=== PATIENT | female | born 1970 | race Caucasian/White ===

== ENCOUNTER 2017-08-07 11:43 | Outpatient (RCR) | payer BC, SELFPAY | END 2017-08-26 23:59 | LOC: NS 11:43 | PROVIDERS: Family Provider Family Medicine; PCP Family Medicine; Visit Provider Family Medicine | DX: Z68.28 Body mass index [BMI] 28.0-28.9, adult (principal); Z71.3 Dietary counseling and surveillance | CPT/HCPCS: 97803 ==

== ENCOUNTER → 2017-08-20 12:46 | Outpatient (CLI) | payer BC, SELFPAY ==
--- NOTE | 2017-08-20 12:49 | HPBI_ITS ---
MAMMOGRAPHY - BILATERAL DIAGNOSTIC REASON FOR EXAM: Female, 46 years old. Prior bilateral mastectomies with TRAM flap reconstruction. PERTINENT HISTORY: Personal history of breast cancer. Grandmother with breast cancer. TECHNIQUE: Digital bilateral breast kendra (3D mammographic acquisition) in the CC and MLO projections. 2-D mediolateral oblique (MLO) and craniocaudad (CC) views of both breasts were obtained. CAD: Full Field Digital Mammography with Computer Added Detection was performed. COMPARISON: Comparison is made with prior outside examination dated March 07, 2016 and prior in-house mammogram dated January 09, 2014. FINDINGS: Breast Composition: The breasts are almost entirely fatty. Multiple surgical clips are once again seen in the axillary regions and deep aspects of both breasts. There has been no change. There are no dominant masses or suspicious calcifications. No other significant abnormalities are identified. There has been no significant change since the prior study. HPBI/DIAG MAMM W/CAD, BILAT IMPRESSION: Stable bilateral diagnostic mammogram. One year follow-up recommended. (A) ASSESSMENT CATEGORY: BIRADS Category 2: Benign. A letter regarding these results will be sent to the patient by the facility within 30 days. Approximately 10% of breast cancers are not detected by mammography. A normal mammogram should not delay biopsy of a clinically suspicious abnormality. Electronically Signed: Sebastien Balderas MD at 14:23 EST Tel [phone], Service support ,
--- NOTE | 2017-08-20 13:35 | US_ITS ---
STUDY: ULTRASOUND BREAST - RIGHT REASON FOR EXAM: Female, 46 years old. Palpable lump in the right breast. Right breast tenderness. TECHNIQUE: Axial and longitudinal images of the RIGHT breast were performed with a high resolution ultrasound transducer. COMPARISON: Comparison is made with prior mammogram done earlier in the day. FINDINGS: RIGHT Breast: 2 small cysts are seen at the 7:00 position the breast at 5 cm from nipple. The larger measures 6 mm x 6 x 5 mm. US/Breast Limited Unilateral IMPRESSION: 2 subcentimeters cysts seen at the 7:00 position of breast at 5 cm from the nipple. ASSESSMENT CATEGORY: BIRADS Category 2: Benign. A letter regarding these results will be sent to the patient by the facility within 30 days. Electronically Signed: Sebastien Balderas MD at 14:33 EST Tel [phone], Service support ,
== END ==
PROVIDERS: Family Provider Family Medicine; PCP Family Medicine; Visit Provider Family Medicine
DX: C50.911 Malignant neoplasm of unspecified site of right female breast (principal)
CPT/HCPCS: 76642; 77062; 77066; G0279

== ENCOUNTER 2017-09-04 11:07 | Outpatient (RCR) | payer BC, SELFPAY | END 2017-09-04 11:08 | disposition home or self-care (01) | LOC: NS 11:07 | PROVIDERS: Family Provider Family Medicine; PCP Family Medicine; Visit Provider Family Medicine | DX: Z68.28 Body mass index [BMI] 28.0-28.9, adult (principal); Z71.3 Dietary counseling and surveillance | CPT/HCPCS: 97803 ==

== ENCOUNTER 2017-09-18 11:36 | Outpatient (RCR) | payer BC, SELFPAY | END 2017-09-26 23:59 | LOC: NS 11:36 | PROVIDERS: Family Provider Family Medicine; PCP Family Medicine; Visit Provider Family Medicine | DX: Z71.3 Dietary counseling and surveillance (principal); Z68.28 Body mass index [BMI] 28.0-28.9, adult | CPT/HCPCS: 97803 ==

== ENCOUNTER 2017-10-02 09:44 | Outpatient (RCR) | payer BC, SELFPAY | END 2017-10-02 09:45 | LOC: NS 09:44 | PROVIDERS: Family Provider Family Medicine; PCP Family Medicine; Visit Provider Family Medicine | DX: Z68.28 Body mass index [BMI] 28.0-28.9, adult (principal); Z71.3 Dietary counseling and surveillance | CPT/HCPCS: 97803 ==

== ENCOUNTER → 2018-05-17 12:22 | Outpatient (CLI) | payer BC, SELFPAY ==
--- NOTE | 2018-05-17 12:31 | RAD_ITS ---
STUDY: X-RAY - ABDOMEN/PELVIS REASON FOR EXAM: Female, 47 years old. Left-sided pain with diarrhea TECHNIQUE: AP supine and upright views of the abdomen and pelvis. COMPARISON: None. FINDINGS: Normal visualized lung bases. Constipation pattern is present. Nonobstructive bowel gas pattern. There is no demonstrated free abdominal air. The visualized liver, spleen and kidneys are grossly normal in size and morphology. Normal soft tissue structures. Normal visualized osseous structures. Scattered surgical clips in the chest and abdomen. Fallopian tube clip. Pelvic phleboliths. RAD/Abd Inc Decub and/or Erect IMPRESSION: Constipation pattern is present. Nonobstructive bowel gas pattern. Electronically Signed: Emiliano Ndiaye MD at 8:23 EST Tel , Service support ,
[2018-05-17 14:46] LABS: Erythrocyte Sedimentation Rate 16 mm/hr (0-20)
[2018-05-17 14:47] LABS: Absolute Lymphocyte Count 2.73 X10^3/ul (0.83-4.51); Basophil# 0.03 X10^3/uL; Basophil% 0.2 % (0-1); Eosinophil# 0.06 X10^3/uL; Eosinophils% 0.4 % (0-5); Hematocrit 41.7 % (37-47); Hemoglobin 13.6 g/dl (12.0-15.0); Lymphocyte # 2.73 X10^3/ul (4.0); Lymphocyte % 19.7 % (19-41); Mean Corp Hgb Conc 32.6 g/gl (32-36); Mean Corpuscular Hgb 28.9 pg (27.0-32.0); Mean Corpuscular Volume 88.5 fL (81-99); Mean Platelet Vol. 9.9 fl (6.2-12.0); Monocyte# 0.98 X10^3/uL; Monocyte% 7.1 % (0-10); Neutrophil # 10.02 X10^3/uL (2.7-7.7); Neutrophil % 72.3 % (47-70); Platelet Count 325 K/mm3 (150-450); RBC Distribution Width CV 13.1 % (11.6-14.6); RBC Distribution Width SD 41.9 fl (35.1-43.9); Red Blood Count 4.71 M/mm3 (4.2-5.4); White Blood Count 13.9 K/mm3 (4.4-11.0)
[2018-05-17 14:48] LABS: POSITIVE COUNT NO; POSITIVE DIFFERENTIAL NO; POSITIVE MORPHOLOGY NO
[2018-05-17 15:09] LABS: ALB/GLOB Ratio 1.2 RATIO (0.9-2.4); AST(SGOT) 18 U/L (15-37); Alanine Aminotransfer ALT/SGPT 38 U/L (13-56); Alkaline Phosphatase 111 U/L (45-117); Anion Gap 7 (5-15); BUN 16 mg/dL (7-18); Calcium,Total 8.5 mg/dL (8.5-10.1); Chloride 104 mmol/L (98-107); EST Glomerular Filtration Rate 63 mL/min (>60); Est Glom Filt Rate - Afr Amer 76 mL/min (>60); Globulin 3.4 g/dL (2.2-4.2); Glucose 109 mg/dL (74-106); Potassium 3.6 mmol/L (3.5-5.1); Protein, Total 7.4 g/dL (6.4-8.2); Sodium Level 139 mmol/L (136-145)
== END ==
PROVIDERS: Family Provider Family Medicine; PCP Family Medicine; Referring Provider Family Medicine; Visit Provider Family Medicine
DX: K59.00 Constipation, unspecified (principal)
CPT/HCPCS: 36415; 74019; 80053; 85025; 85652; 86140; 87086; 87088

== ENCOUNTER → 2018-05-18 10:13 | Outpatient (CLI) | payer BC, SELFPAY ==
--- NOTE | 2018-05-18 10:37 | CT_ITS ---
STUDY: CT ABDOMEN AND PELVIS WITH CONTRAST REASON FOR EXAM: Female, 47 years old. Left lower quadrant pain. Low back pain. History of bilateral mastectomy and chemotherapy for breast cancer. RADIATION DOSAGE (If Supplied By Facility): CTDIvol = ( 15.21 ) mGy, DLP = ( 819.36 ) mGycm TECHNIQUE: Transaxial images were obtained from the dome of the diaphragm to the symphysis pubis with oral contrast. 100 ml of Isovue 300 contrast was administered. Sagittal and coronal images were reconstructed. Individualized dose optimization techniques were used for this CT. COMPARISON: None. FINDINGS: The visualized lung bases are unremarkable. The visualized portions of the heart are within normal limits. Normal liver. Normal gallbladder and extrahepatic biliary system. Normal spleen. Normal pancreas. Normal bilateral adrenal glands. Normal right kidney. Normal left kidney. There is a small hiatal hernia. Normal small intestine. There is evidence of circumferential wall thickening of the distal portion of the descending colon and proximal portion of the sigmoid colon with increased markings in the surrounding peritoneal fat. This is suggestive of a diverticulitis. A small thickened diverticulum is seen along the mesenteric side of the proximal sigmoid colon at the site of inflammation. There are multiple colonic diverticula consistent with diverticulosis. The patient is status post appendectomy. Normal abdominal aorta. Normal inferior vena cava. Normal retroperitoneum. Normal urinary bladder. There is absence of the uterus consistent with a prior hysterectomy. Small amount of free fluid is seen in the cul-de-sac. Normal abdominal wall. Disc space narrowing and disc degeneration is seen at the L5-S1 level. CT/Abdomen/Pelvis WITH Contrast IMPRESSION: Findings in keeping with the diverticulitis of the distal descending colon and proximal sigmoid colon with thickening of the wall and increased markings in the surrounding peritoneal fat. No abscess collection is seen at this time. Small amount of free fluid is seen in the cul-de-sac. Electronically Signed: Sebastien Balderas MD at 13:21 EST Tel [phone], Service support ,
== END ==
PROVIDERS: Family Provider Family Medicine; PCP Family Medicine; Referring Provider Family Medicine; Visit Provider Family Medicine
DX: R10.9 Unspecified abdominal pain (principal)
CPT/HCPCS: 74177; Q9967

== ENCOUNTER → 2018-10-19 11:07 | Outpatient (CLI) | payer BC, SELFPAY ==
[2018-10-19 12:34] LABS: Absolute Lymphocyte Count 2.83 X10^3/ul (0.83-4.51); Absolute Neutrophil Count 3.1 X10^3/uL (2.0-7.7); Basophil# 0.04 X10^3/uL; Basophil% 0.6 % (0-1); Eosinophil# 0.15 X10^3/uL; Eosinophils% 2.3 % (0-5); Hematocrit 43.6 % (37-47); Hemoglobin 14.3 g/dl (12.0-15.0); Lymphocyte # 2.83 X10^3/ul (4.0); Lymphocyte % 43.7 % (19-41); Mean Corp Hgb Conc 32.8 g/gl (32-36); Mean Corpuscular Hgb 28.7 pg (27.0-32.0); Mean Corpuscular Volume 87.4 fL (81-99); Mean Platelet Vol. 9.3 fl (6.2-12.0); Monocyte# 0.38 X10^3/uL; Monocyte% 5.9 % (0-10); Neutrophil # 3.06 X10^3/uL (2.7-7.7); Neutrophil % 47.3 % (47-70); Platelet Count 309 K/mm3 (150-450); RBC Distribution Width CV 13.3 % (11.6-14.6); RBC Distribution Width SD 42.1 fl (35.1-43.9); Red Blood Count 4.99 M/mm3 (4.2-5.4); White Blood Count 6.5 K/mm3 (4.4-11.0)
[2018-10-19 12:44] LABS: POSITIVE COUNT NO; POSITIVE DIFFERENTIAL NO; POSITIVE MORPHOLOGY NO
[2018-10-19 13:02] LABS: Anion Gap 3 (5-15); BUN 15 mg/dL (7-18); BUN/Creat Ratio 17.8 RATIO (10-20); Calcium,Total 8.9 mg/dL (8.5-10.1); Chloride 107 mmol/L (98-107); Creatinine, Serum 0.84 mg/dL (0.55-1.02); EST Glomerular Filtration Rate 76 mL/min (>60); Est Glom Filt Rate - Afr Amer 92 mL/min (>60); Glucose 97 mg/dL (74-106); Potassium 4.2 mmol/L (3.5-5.1); Sodium Level 139 mmol/L (136-145); Thyroid Stim Hormone (TSH) 1.09 uIU/mL (0.358-3.74)
[2018-10-19 13:04] LABS: Vitamin B12 543 pg/mL (211-911); Vitamin D,25 Hydroxy 15.4 ng/mL (29.95-100.01)
== END ==
PROVIDERS: Family Provider Family Medicine; PCP Family Medicine; Referring Provider Family Medicine; Visit Provider Family Medicine
DX: E04.1 Nontoxic single thyroid nodule (principal); E55.9 Vitamin D deficiency, unspecified; D53.1 Other megaloblastic anemias, not elsewhere classified; F98.8 Other specified behavioral and emotional disorders with onset usually occurring in childhood and adolescence; R53.83 Other fatigue
CPT/HCPCS: 36415; 80048; 82306; 82607; 84443; 85025

== ENCOUNTER → 2018-11-12 12:02 | Outpatient (CLI) | payer BC, SELFPAY ==
--- NOTE | 2018-11-12 12:05 | BI_ITS ---
MAMMOGRAPHY - BILATERAL SCREENING REASON FOR EXAM: Female, 47 years old. Routine annual screening examination. PERTINENT HISTORY: Personal history of breast cancer. Bilateral mastectomies with TRAM flap reconstructive surgery. Grandmother with breast cancer. TECHNIQUE: Digital bilateral breast kendra (3D mammographic acquisition) in the CC and MLO projections. 2-D mediolateral oblique (MLO) and craniocaudad (CC) views of both breasts were obtained. CAD: Full Field Digital Mammography with Computer Added Detection was performed. COMPARISON: Comparison is made with prior study dated August 20, 2017 and March 15, 2015. FINDINGS: Breast Composition: The breasts are almost entirely fatty. There are no dominant masses or suspicious calcifications. Multiple surgical clips are once again seen in the axillary regions of both breasts as well as in the deep aspects of both breasts. Stable small bilateral benign appearing axillary lymph nodes. No other significant abnormalities are identified. There has been no significant change since the prior study. BI/SCREENING MAMM (CAD), BILAT IMPRESSION: Stable bilateral screening mammogram. Yearly follow-up mammogram recommended. (A) ASSESSMENT CATEGORY: BIRADS Category 2: Benign. A letter regarding these results will be sent to the patient by the facility within 30 days. Approximately 10% of breast cancers are not detected by mammography. A normal mammogram should not delay biopsy of a clinically suspicious abnormality. [id number] Electronically Signed: Sebastien Balderas, at 13:38 EDT , Service support ,
== END ==
PROVIDERS: Family Provider Family Medicine; PCP Family Medicine; Referring Provider Family Medicine; Visit Provider Family Medicine
DX: Z12.31 Encounter for screening mammogram for malignant neoplasm of breast (principal); Z80.3 Family history of malignant neoplasm of breast
CPT/HCPCS: 77063; 77067

== ENCOUNTER → 2020-01-03 09:55 | Outpatient (CLI) | payer BC, SELFPAY ==
[2020-01-03 12:44] LABS: Hemoglobin 13.8 g/dL (12.0-15.0); Mean Corp Hgb Conc 32.1 g/dL (32-36); Mean Corpuscular Hgb 29.2 pg (27.0-32.0); Mean Corpuscular Volume 90.9 fL (81-99); Mean Platelet Vol. 9.4 fl (6.2-12.0); Platelet Count 302 K/mm3 (150-450); RBC Distribution Width CV 12.7 % (11.6-14.6); Red Blood Count 4.73 M/mm3 (4.2-5.4)
[2020-01-03 12:47] LABS: Amphetamine Urine VISTA POSITIVE (<1000 ng/mL); Barbiturate Urine VISTA NEGATIVE (< 200 ng/mL); Benzodiazepine Urine VISTA NEGATIVE (< 200 ng/mL); Cocaine Urine VISTA NEGATIVE (< 300 ng/mL); Ecstacy Urine VISTA NEGATIVE (< 500 ng/mL); Methadone Urine VISTA NEGATIVE (< 300 ng/mL); PCP Urine VISTA NEGATIVE (< 25 ng/mL); THC Urine VISTA NEGATIVE (< 50 ng/mL); Vista UDS pH Range 6
[2020-01-03 13:01] LABS: Vitamin D,25 Hydroxy 46.4 ng/mL
[2020-01-03 13:19] LABS: ALB/GLOB Ratio 1.1 RATIO (0.9-2.4); AST(SGOT) 24 U/L (15-37); Alanine Aminotransfer ALT/SGPT 47 U/L (13-56); Albumin, Serum 3.8 g/dL (3.2-5.0); Alkaline Phosphatase 96 U/L (45-117); Anion Gap 7 (5-15); BUN 17 mg/dL (7-18); BUN/Creat Ratio 17.8 RATIO (10-20); Calcium,Total 8.6 mg/dL (8.5-10.1); Chloride 103 mmol/L (98-107); Cholesterol 191 mg/dL (200); Creatinine, Serum 0.96 mg/dL (0.55-1.02); EST Glomerular Filtration Rate 65 mL/min (>60); Est Glom Filt Rate - Afr Amer 79 mL/min (>60); Globulin 3.6 g/dL (2.2-4.2); Glucose 104 mg/dL (74-106); High Density Lipoprotein 60 mg/dL; Potassium 4.3 mmol/L (3.5-5.1); Protein, Total 7.4 g/dL (6.4-8.2); Sodium Level 138 mmol/L (136-145); Thyroid Stim Hormone (TSH) 1.09 uIU/mL (0.358-3.74); Triglycerides 93 mg/dL; Very Low Density Lipoprotein 19 mg/dL (5-40)
== END ==
LOC: MFPLAB 10:00
PROVIDERS: PCP Family Medicine; Referring Provider Family Medicine; Visit Provider Family Medicine
DX: Z00.00 Encounter for general adult medical examination without abnormal findings (principal); Z13.220 Encounter for screening for lipoid disorders; M85.80 Other specified disorders of bone density and structure, unspecified site; K21.0 Gastro-esophageal reflux disease with esophagitis
CPT/HCPCS: 36415; 80053; 80061; 80307; 82306; 84443; 85027

== ENCOUNTER 2020-12-18 17:20 | Emergency (ER) | payer BC, SELFPAY ==
[2020-12-18 17:21] VITALS: BP 132/87; PULSE 115; RESP 18; TEMP 36.1; O2SAT 98; BMI 29.4
[2020-12-18 17:22] VITALS: BP 132/87; PULSE 115; RESP 18; TEMP 36.1; O2SAT 98
--- NOTE | 2020-12-18 17:57 | CT_ITS ---
HISTORY: lower abd pain, more LLQ EXAMINATION: CT Abdomen And Pelvis W/ Contrast Injection TECHNIQUE: Helically acquired images were obtained of the abdomen and pelvis following IV contrast. A radiation dose optimization technique was used for this scan. IV Contrast dosage and agent: IV 100mL Isovue-300 Oral contrast: None. COMPARISON: 05/18/18 FINDINGS: LOWER CHEST: Bibasilar dependent changes. No cardiomegaly or pericardial effusion. Small hiatal hernia. LIVER: Homogeneous. No focal mass. GALLBLADDER AND BILIARY TREE: No calcified gallstones. No gallbladder distension or wall edema. No intra- or extrahepatic biliary ductal dilation. PANCREAS: No focal cystic or solid mass. SPLEEN: Normal size without focal cystic or solid mass. ADRENAL GLANDS: No nodules. KIDNEYS AND URETERS: Normal renal size and position. No hydronephrosis. PERITONEUM: No ascites or free air. BOWEL: Prior appendectomy changes. No stomach or bowel distension. Colonic diverticulosis with segment of sigmoid wall thickening and pericolonic stranding. LYMPH NODES: No enlarged mesenteric or retroperitoneal lymph nodes. VESSELS: Aorta is non-dilated. URINARY BLADDER: Unremarkable. REPRODUCTIVE ORGANS: No pelvic masses. Uterus absent. ABDOMINAL WALL: No discrete abdominal or pelvic wall hernia. BONES: No acute or aggressive abnormality. CT/Abdomen/Pelvis W IV Cont ONLY IMPRESSION: Acute sigmoid diverticulitis. No pelvic abscess or evidence of perforation. Individualized dose optimization techniques were used for this CT. at 1922 Reported and signed by: Heriberto Vital MD Electronically Signed: Heriberto Vital MD at 19:21 EDT Tel , Service support ,
--- NOTE | 2020-12-18 18:01 | ED.VIS.GI ---
HPI HPI - GI History of Present Illness Chief Complaint: Abd Pain Informant: patient Abdominal Pain/Flank Pain Onset: Days (5) Context: Gradual Onset Timing: Continuous and Waxes and wanes Quality: Aching Location: LLQ Current Severity: Moderate Maximum Severity: Severe Worsened by: Nothing Relieved by: Nothing Nausea/Vomiting/Emesis GI Symptom: Positive for Nausea; Negative for Vomiting Diarrhea/Melena/Hematochezia GI Symptom: Negative for Diarrhea, Melena and Hematochezia Associated Symptoms Associated Symptoms: Positive for Dysuria and Frequency; Negative for Hematuria and Urgency Narrative Narrative: Abdominal pain mostly left lower quadrant waxing and waning, has been worsening with occasional spasms. Seen by her PCP and referred to the ER. States she was diagnosed with diverticulosis but does not know that she ever had diverticulitis. She denies any known fevers. Pain does radiate into her back some. Recent Illness/Hospitalization: No [facility] Medical History Breast cancer GERD (gastroesophageal reflux disease) Home Medications anastrozole 1 mg PO DAILY 12/18/20 [History Last Taken Unknown] bupropion HCl 150 mg PO DAILY 12/18/20 [History Last Taken Unknown] cholecalciferol (vitamin D3) 50 mcg PO DAILY 12/18/20 [History Last Taken Unknown] ciprofloxacin HCl 500 mg PO BID #20 tablet 12/18/20 [Rx Last Taken Unknown] dextroamphetamine-amphetamine [Adderall XR] 30 mg PO DAILY 12/18/20 [History Last Taken Unknown] metronidazole 500 mg PO BID #20 tab 12/18/20 [Rx Last Taken Unknown] omeprazole 40 mg PO DAILY 12/18/20 [History Last Taken Unknown] ondansetron 8 mg PO Q8H PRN PRN #20 tab 12/18/20 [Rx Last Taken Unknown] tramadol 50 mg PO Q4H PRN PRN 3 Days #14 tab 12/18/20 [Rx Last Taken Unknown] Allergy/AdvReac Type Severity Reaction Status Date / Time No Known Allergies Allergy Verified 12/18/20 17:46 Social History Smoking Status: Former smoker ROS ROS ED Constitutional Constitutional ED: Denies chills or fever(s) Eyes Eyes: Denies change in vision or diplopia ENT ENT ED: Denies rhinorrhea or sore throat Cardiovascular Cardiovascular: Denies chest pain or palpitations Respiratory/Chest Respiratory/Chest: Denies cough or dyspnea Gastrointestinal Gastrointestinal: Reports abdominal pain and nausea; Denies diarrhea or vomiting Genitourinary Genitourinary ED: Reports as per HPI and dysuria; Denies hematuria Musculoskeletal Musculoskeletal: Reports back pain; Denies neck pain Integumentary Denies abscess or rash Neurologic Neurologic: Denies headache(s), paresthesias or weakness Psychiatric Psychiatric: Denies anxiety or suicidal thoughts EXAM Physical Exam Const Vital Signs: 12/18/20 17:21 12/18/20 17:22 12/18/20 19:18 Temperature 96.9 F L 96.9 F L Temperature Source Temporal Temporal Pulse Rate 115 H 115 H 101 H Respiratory Rate 18 18 16 Blood Pressure 132/87 H 132/87 H 123/79 H Blood Pressure Mean 102 102 93 Pulse Ox 98 98 99 Oxygen Delivery Method Room Air Room Air Room Air Positive well nourished and well developed General Appearance ED: well developed and NAD HEENT Reports moist mucous membranes normocephalic and atraumatic Eyes PERRL and EOMs intact bilaterally Neck full ROM and supple Resp normal respiratory effort and clear to auscultation bilaterally Cardio regular rate, regular rhythm and no murmurs GI non-distended GI Narrative: Tender in both lower quadrants, mildly suprapubic. No guarding or rebound. Otherwise nontender. Auscultation: normoactive bowel sounds Palpation: soft Back/Spine no CVA tenderness General Back: other FROM Extremity normal to inspection General Extremety ED: Negative for edema, pulses abnormal or tenderness General Extremity: Negative for edema or pulses abnormal Neuro oriented x3, CN's II-XII intact bilaterally and no sensory deficits noted Sensorium / Orientation: awake and alert Motor Exam: strength 5/5 throughout Skin no rashes or lesions noted and no wounds MDM MDM MDM Narrative Medical decision making narrative: Patient's work-up is consistent with diverticulitis in addition to a bladder infection given her symptoms and urinalysis. She is well-appearing, felt a little better after Toradol, and after we discussed other options for pain, she was okay getting a tramadol. I think she can be treated as an outpatient. I offered admission she declines and is comfortable with that as well and we discussed reasons to return. I sent her urine for a culture, gave her initial IV doses of ciprofloxacin and metronidazole, and will send her home on same for a 10-day course. Lab Data Attestation: I reviewed the patient's lab results. Labs: Laboratory Results - last 24 hr 12/18/20 12/18/20 12/18/20 18:05 18:05 18:05 WBC 11.3 H RBC 4.82 Hgb 13.9 Hct 42.7 MCV 88.6 MCH 28.8 MCHC 32.6 RDW Std Deviation 40.7 RDW Coeff of Layla 12.7 Plt Count 360 MPV 8.9 Immature Gran % (Auto) 0.400 Neut % (Auto) 70.5 H Lymph % (Auto) 21.2 [place] % (Auto) 7.3 Eos % (Auto) 0.2 Baso % (Auto) 0.4 Absolute Neuts (auto) 8.0 H Absolute Lymphs (auto) 2.39 Nucleated RBC % 0 Sodium 140 Potassium 3.7 Chloride 104 Carbon Dioxide 27.0 Anion Gap 9 BUN 14 Creatinine 1.19 H Estim Creat Clear Calc 41.73 Est GFR (MDRD) Af Amer 61 Est GFR (MDRD) Non-Af 51 L BUN/Creatinine Ratio 11.8 Glucose 120 H Calcium 8.8 Urine Color Yellow Urine Clarity Clear Urine pH 6.5 Ur Specific [place] 1.015 Urine Protein 15 H Urine Glucose (UA) Normal Urine Ketones 5 H Urine Occult Blood 50 H Urine Nitrite Negative Urine Bilirubin Negative Urine Urobilinogen 8 H Ur Leukocyte Esterase 100 H Urine RBC 0-5 SEEN Urine WBC 10-25 SEEN Ur Squamous Epith Cells 0 SEEN Urine Bacteria RARE Urine Mucus 1+ Radiography Diagnostic Testing: Radiology Impression Abdomen/Pelvis CT 12/18/20 17:57 IMPRESSION: Acute sigmoid diverticulitis. No pelvic abscess or evidence of perforation. Individualized dose optimization techniques were used for this CT. at 1922 Reported and signed by: Heriberto Vital MD Electronically Signed: Heriberto Vital MD at 19:21 EDT Tel , Service support , Discharge Plan Triage Chief Complaint: Abd Pain ED Provider: Anant Ro Dx/Rx/DC Orders Clinical Impression: Sigmoid diverticulitis, Acute lower UTI Instructions: ED Diverticulitis, ED CYSTITIS Female Adult Prescriptions: New metronidazole [metronidazole] 500 MG tablet 500 mg PO BID Qty: 20 RF: 0 ciprofloxacin HCl [ciprofloxacin HCl] 500 MG tablet 500 mg PO BID Qty: 20 RF: 0 tramadol 50 MG tablet 50 mg PO Q4H PRN PRN (Reason: Pain) 3 Days Qty: 14 RF: 0 ondansetron [ondansetron] 4 MG tablet 8 mg PO Q8H PRN PRN (Reason: Nausea) Qty: 20 RF: 0 No Action anastrozole 1 mg tablet 1 mg PO DAILY RF: 0 omeprazole 40 mg capsule,delayed release(DR/EC) 40 mg PO DAILY RF: 0 dextroamphetamine-amphetamine [Adderall XR] 30 mg capsule,extended release 24hr 30 mg PO DAILY RF: 0 bupropion HCl 150 mg tablet extended release 24 hr 150 mg PO DAILY RF: 0 cholecalciferol (vitamin D3) 50 mcg (2,000 unit) capsule 50 mcg PO DAILY RF: 0 Primary Care Provider: Kishor Acosta Referrals: Kishor Acosta MD [Primary Care Provider] - Disposition Disposition: Home, Self Care
[2020-12-18] MEDS: Ondansetron 4 MG/2 ML Vial IV ×2 (18:10→22:14)
[2020-12-18] MEDS: 0.9% Normal Saline 1,000 ML 1000 ML IV (18:10)
[2020-12-18] MEDS: Ketorolac 15 MG/ML Vial IV (18:10)
[2020-12-18 18:12] LABS: Squamous Epithelial Cells - UA 0 SEEN /hpf (5-10)
[2020-12-18 18:15] LABS: Absolute Lymphocyte Count 2.39 X10^3/uL (0.83-4.51); Basophil# 0.04 X10^3/uL; Basophil% 0.4 % (0-1); Eosinophil# 0.02 X10^3/uL; Eosinophils% 0.2 % (0-5); Hematocrit 42.7 % (37-47); Hemoglobin 13.9 g/dL (12.0-15.0); Lymphocyte # 2.39 X10^3/ul (0.83-4.51); Lymphocyte % 21.2 % (19-41); Mean Corp Hgb Conc 32.6 g/dL (32-36); Mean Corpuscular Hgb 28.8 pg (27.0-32.0); Mean Corpuscular Volume 88.6 fL (81-99); Mean Platelet Vol. 8.9 fl (6.2-12.0); Monocyte# 0.82 X10^3/uL; Monocyte% 7.3 % (0-10); NRBC Flagged by Analyzer 0 % (0-5); Neutrophil # 7.96 X10^3/uL (2.7-7.7); Neutrophil % 70.5 % (47-70); Platelet Count 360 K/mm3 (150-450); RBC Distribution Width CV 12.7 % (11.6-14.6); RBC Distribution Width SD 40.7 fl (35.1-43.9); Red Blood Count 4.82 M/mm3 (4.2-5.4); White Blood Count 11.3 K/mm3 (4.4-11.0)
[2020-12-18 18:35] LABS: Anion Gap 9 (5-15); BUN 14 mg/dL (7-18); BUN/Creat Ratio 11.8 RATIO (10-20); Calcium,Total 8.8 mg/dL (8.5-10.1); Chloride 104 mmol/L (98-107); Creatinine, Serum 1.19 mg/dL (0.55-1.02); EST Glomerular Filtration Rate 51 mL/min (>60); Est Glom Filt Rate - Afr Amer 61 mL/min (>60); Estimated Creatinine Clearance 41.73 ml/min; Glucose 120 mg/dL (74-106); Potassium 3.7 mmol/L (3.5-5.1); Sodium Level 140 mmol/L (136-145)
[2020-12-18 18:36] LABS: Color, Urine Yellow (Yellow); Glucose, Dipstick Normal (Normal); Ketone-Dipstick 5 mg/dl (Negative); Leukocyte Esterase-Dipstick 100 /ul (Negative); Nitrite-Dipstick Negative (Negative); Occult Blood-Urine 50 /ul (Negative); Protein-Dipstick 15 mg/dl (Negative); Specific Gravity, Urine 1.015 (1.002-1.030); Urine Bilirubin Dipstick Negative (Negative); Urine Clarity Clear (Clear); Urine Urobilinogen 8 mg/dl (Normal); Urine pH 6.5 (5.0 - 8.0)
[2020-12-18 18:43] LABS: Bacteria RARE /hpf (None Seen); Mucous, Urine 1+ /hpf (<or=2+); Red Blood Cells-Urine 0-5 SEEN /hpf (0-5); White Blood Cells 10-25 SEEN /hpf (0-5)
[2020-12-18 19:18] VITALS: BP 123/79; PULSE 101; RESP 16; O2SAT 99
[2020-12-18] MEDS: metroNIDAZOLE 500 MG/100 ML BAG 100 MG IV (20:17)
[2020-12-18] MEDS: traMADol 50 MG Tablet PO (20:28)
[2020-12-18] MEDS: Ciprofloxacin 400 MG/200 ML BAG 200 MG IV (21:06)
== END 2020-12-18 22:22 | disposition home or self-care (01) ==
PROVIDERS: Emergency Provider Emergency Medicine; PCP Family Medicine
DX: K57.32 Diverticulitis of large intestine without perforation or abscess without bleeding (principal); N39.0 Urinary tract infection, site not specified; K21.9 Gastro-esophageal reflux disease without esophagitis; Z79.899 Other long term (current) drug therapy; Z87.891 Personal history of nicotine dependence
CPT/HCPCS: 74177; 80048; 81001; 85025; 87086; 87088; 96365; 96367; 96375; 96376; 99284; J7030; Q9967; A4216; J0744; J2405

== ENCOUNTER → 2021-04-15 13:01 | Outpatient (CLI) | payer BC, SELFPAY ==
--- NOTE | 2021-04-15 13:05 | RAD_ITS ---
EXAM: XR CHEST, 2 VIEWS : 1970 CLINICAL INDICATION: COVID TECHNIQUE: Frontal and lateral views of the chest. This report was created using [employer] report generation technology. COMPARISON: None. FINDINGS: LUNGS AND PLEURAL SPACES: There is patchy bilateral airspace disease greatest in the left lower lobe. No pneumothorax. No effusion. HEART: Unremarkable. Cardiac silhouette not enlarged. MEDIASTINUM: Central airways and mediastinal contour are unremarkable. BONES/JOINTS: Unremarkable. SOFT TISSUES: Multiple surgical clips are seen overlying the chest. RAD/Chest PA and Lateral IMPRESSION: Patchy bilateral airspace disease greatest in the left lower lobe which may represent developing bilateral pneumonia. at 0309 Reported and signed by: Matthias Zamudio MD Electronically Signed: Matthias Zamudio MD at 3:08 EDT Tel , Service support ,
[2021-04-15 15:47] LABS: Absolute Lymphocyte Count 1.08 X10^3/uL (0.83-4.51); Absolute Neutrophil Count 1.1 X10^3/uL (2.0-7.7); Basophil# 0.02 X10^3/uL; Basophil% 0.8 % (0-1); Eosinophil# 0.02 X10^3/uL; Eosinophils% 0.8 % (0-5); Hemoglobin 12.8 g/dL (12.0-15.0); Lymphocyte # 1.08 X10^3/ul (0.83-4.51); Lymphocyte % 42.7 % (19-41); Mean Corp Hgb Conc 31.2 g/dL (32-36); Mean Corpuscular Hgb 28.1 pg (27.0-32.0); Mean Corpuscular Volume 89.9 fL (81-99); Mean Platelet Vol. 9.4 fl (6.2-12.0); Monocyte% 11.9 % (0-10); NRBC Flagged by Analyzer 0 % (0-5); Neutrophil % 43.4 % (47-70); POSITIVE MORPHOLOGY YES; Platelet Count 294 K/mm3 (150-450); RBC Distribution Width CV 14.3 % (11.6-14.6); RBC Distribution Width SD 46.5 fl (35.1-43.9); Red Blood Count 4.56 M/mm3 (4.2-5.4); White Blood Count 2.5 K/mm3 (4.4-11.0)
[2021-04-15 15:49] LABS: Differential Indicated SCAN CRITERIA MET
[2021-04-15 15:58] LABS: ALB/GLOB Ratio 0.8 RATIO (0.9-2.4); AST(SGOT) 37 U/L (15-37); Alanine Aminotransfer ALT/SGPT 62 U/L (13-56); Albumin, Serum 3.2 g/dL (3.2-5.0); Alkaline Phosphatase 107 U/L (45-117); Anion Gap 5 (5-15); BUN 10 mg/dL (7-18); BUN/Creat Ratio 11.3 RATIO (10-20); Calcium,Total 8.5 mg/dL (8.5-10.1); Chloride 106 mmol/L (98-107); Creatinine, Serum 0.89 mg/dL (0.55-1.02); EST Glomerular Filtration Rate 71 mL/min (>60); Est Glom Filt Rate - Afr Amer 86 mL/min (>60); Globulin 4.2 g/dL (2.2-4.2); Glucose 105 mg/dL (74-106); Protein, Total 7.4 g/dL (6.4-8.2); Sodium Level 139 mmol/L (136-145)
[2021-04-15 16:14] LABS: Erythrocyte Sedimentation Rate 15 mm/hr (0-30)
[2021-04-15 16:15] LABS: Differential Comment SCANNED
== END ==
LOC: MTLAB 13:02
PROVIDERS: PCP Family Medicine; Referring Provider Family Medicine; Visit Provider Family Medicine
DX: U07.1 COVID-19 (principal)
CPT/HCPCS: 36415; 71046; 80053; 85025; 85652

== ENCOUNTER → 2022-04-02 | Outpatient (CLI) | payer BC, SELFPAY ==
[2022-04-02 10:15] LABS: Hematocrit 44.2 % (37-47); Hemoglobin 14.3 g/dL (12.0-15.0); Mean Corp Hgb Conc 32.4 g/dL (32-36); Mean Corpuscular Hgb 28.7 pg (27.0-32.0); Mean Corpuscular Volume 88.8 fL (81-99); Mean Platelet Vol. 9.2 fl (6.2-12.0); Platelet Count 349 K/mm3 (150-450); RBC Distribution Width CV 12.8 % (11.6-14.6); RBC Distribution Width SD 41.1 fl (35.1-43.9); Red Blood Count 4.98 M/mm3 (4.2-5.4); White Blood Count 5.8 K/mm3 (4.4-11.0)
[2022-04-02 11:00] LABS: Vitamin B12 470 pg/mL (211-911); Vitamin D,25 Hydroxy 34.1 ng/mL
[2022-04-02 11:10] LABS: Anion Gap 6 (5-15); BUN 16 mg/dL (7-18); BUN/Creat Ratio 15.8 RATIO (10-20); Calcium,Total 9.1 mg/dL (8.5-10.1); Chloride 108 mmol/L (98-107); Creatinine, Serum 1.01 mg/dL (0.55-1.02); EST Glomerular Filtration Rate 61 mL/min (>60); Est Glom Filt Rate - Afr Amer 74 mL/min (>60); Glucose 112 mg/dL (74-106); Iron 110 ug/dL (50-170); Potassium 4.2 mmol/L (3.5-5.1); Sodium Level 141 mmol/L (136-145); Thyroid Stim Hormone (TSH) 1.31 uIU/mL (0.358-3.74)
== END | disposition home or self-care (01) ==
LOC: MFPLAB 09:13
PROVIDERS: PCP Family Medicine; Referring Provider Family Medicine; Visit Provider Family Medicine
DX: M85.80 Other specified disorders of bone density and structure, unspecified site (principal); E55.9 Vitamin D deficiency, unspecified; K21.00 Gastro-esophageal reflux disease with esophagitis, without bleeding
CPT/HCPCS: 36415; 80048; 82306; 82607; 83540; 84443; 85027

== ENCOUNTER 2023-06-08 13:20 | Day surgery (SDC) | payer BC, SELFPAY ==
--- NOTE | 2023-06-08 | GASB_PTH ---
PATIENT: DARSHAN MYERS LOC: EN U#:[id number] AGE/SX: 52/F ROOM: RE06/08/[address]: Dr. Billy Dover MD : 1970 BED: DIS: 06/08/2023 SPEC #: [id number] RECD: 06/08/23 18:25 STATUS: OKSANA CHARO #: [id number] MELISSA: 06/08/23 00:[address]: Billy Dover DEPT: SURGICAL PATHOLOGY RECD BY: Miguel A Clarke ENTERED: 06/09/23 09:09 SP TYPE: Gastric Bx OTHR DR: Dr. Shaheen Acosta MD Tissues: A - Duodenum, NOS B - Gastric mucous membrane C - Esophageal mucous membrane D - Esophageal mucous membrane Procedures: Special Stain Group II Surgery Specimen Level IV Alcian Blue/PAS (control) HEADER OPERATION: EGD with biopsies PRE-OP DIAGNOSIS: GERD TISSUE SUBMITTED: A - Duodenum biopsy, B - Gastric antrum biopsy, C - Distal esophagus biopsy, D - Mild esophagus biopsy MICROSCOPIC DIAGNOSIS A. Duodenum, biopsy: Rubi's gland hyperplasia. B. Gastric antrum, biopsy: Mild chronic gastritis. See comment. C. Distal esophagus, biopsy: Gastroesophageal junctional mucosa with mild chronic inflammation. Focal changes of reflux. No evidence of goblet cell metaplasia. See comment. D. Mid esophagus, biopsy: Fragments of benign squamous mucosa. No evidence of inflammation. AM:armond 06/10/2023 COMMENT B. The results of immunohistochemistry for Helicobacter pylori will be reported separately ([id number]). C. Alcian blue/PAS stain with matched control supports the above diagnosis. MICROSCOPIC DESCRIPTION Slides are reviewed. GROSS DESCRIPTION A - Received in fixative is one container labeled with the patient's name and designated duodenum biopsy. The specimen consists of one irregular fragment of light boykin soft tissue that measures 0.4 x 0.3 x 0.1 cm. The specimen is totally submitted in one cassette. B - Received in fixative is one container labeled with the patient's name and designated gastric antrum. The specimen consists of one irregular fragment of light boykin soft tissue that measures 0.4 x 0.4 x 0.1 cm. The specimen is totally submitted in one cassette. C - Received in fixative is one container labeled with the patient's name and designated distal esophagus biopsy. The specimen consists of multiple irregular fragments of light boykin soft tissue that in aggregate measure 1.0 x 0.2 x 0.1 cm. The specimen is totally submitted in one cassette. D - Received in fixative is one container labeled with the patient's name and designated mid esophagus biopsy. The specimen consists of multiple irregular fragments of light boykin soft tissue that in aggregate measure 0.6 x 0.3 x 0.1 cm. The specimen is totally submitted in one cassette. / SJ:rg 06/09/2023 TC:3 CPT: 92362 x4, 30572
[2023-06-08] MEDS: Lactated Ringers 1,000 ML 15 ML IV (13:50)
[2023-06-08 13:51] VITALS: BP 140/89; PULSE 93; RESP 18; TEMP 36.9; O2SAT 98; BMI 30.3
--- NOTE | 2023-06-08 14:30 | IMM_PTH ---
PATIENT: DARSHAN MYERS LOC: EN U#:[id number] AGE/SX: 52/F ROOM: RE06/08/[address]: Dr. Billy Dover MD : 1970 BED: DIS: 06/08/2023 SPEC #: [id number] RECD: 06/09/23 09:51 STATUS: OKSANA CHARO #: [id number] MELISSA: 06/08/23 14:[address]: Billy Dover DEPT: IMMUNOHISTOCHEMISTRY RECD BY: Yudi Villagomez ENTERED: 06/09/23 09:52 SP TYPE: IMMUNO OTHR DR: Dr. Shaheen Acosta MD Tissues: Gastric mucous membrane Procedures: H Pylori (initial) PHYSICIAN & INSTITUTION [place] [address] SPECIMEN INFORMATION: Tissue Source: B - Antrum biopsy Clinical Info: GERD Specimen Number: [id number] CPT code: 81193 METHODOLOGY: Deparaffinized sections of prefer/formalin-fixed tissue or PAP/DQ stained slides are incubated with monoclonal/polyclonal antibodies/oligonucleotide probes. Localization is made via biotin free immunoperoxidase method. Appropriate controls are performed and reacted as expected. Results on target cell population are indicated in the following table: RESULTS: ANTIBODY / CLONE RESULT Block B H Pylori (polyclonal) negative These tests were developed and their performance characteristics determined by [facility]. They may not have been cleared or approved by the U.S. Food and Drug Administration. The FDA has determined that such clearance or approval is not necessary. The above immunohistochemical/dualISH markers are ordered and reviewed by the Pathologist. INTERPRETATION: B. Antrum, biopsy: Negative for H pylori organisms. AM/bl 06/16/2023
--- NOTE | 2023-06-08 16:14 | PCM.HP.BLA ---
History and Physical Date of Admission: 06/08/23 Visit Reasons: Gastroesophageal reflux disease (GERD) Chief Complaint: GERD Inspector Repairer Required: No Accompanied by: Mother Is patient in pain?: No Allergies No Known Allergies Allergy (Verified 05/15/23 13:06) Medications anastrozole 1 mg tablet 1 mg PO DAILY 12/18/20 [History Confirmed 12/18/20] bupropion HCl 150 mg 24 hr tablet, extended release 150 mg PO DAILY 12/18/20 [History Confirmed 12/18/20] cholecalciferol (vitamin D3) 50 mcg (2,000 unit) capsule 50 mcg PO DAILY 12/18/20 [History Confirmed 12/18/20] dextroamphetamine-amphetamine ER 30 mg 24hr capsule,extend release (Adderall XR) 30 mg PO DAILY 12/18/20 [History Confirmed 12/18/20] omeprazole 40 mg capsule,delayed release 40 mg PO DAILY 12/18/20 [History Confirmed 12/18/20] PFSH Medical History (Updated 05/15/23 @ 05:[address] Billy Dover MD) Breast cancer GERD (gastroesophageal reflux disease) Surgical History (Updated 05/15/23 @ 13:02 by Brittani Subramanian LPN) H/O mastectomy H/O: hysterectomy History of appendectomy Family History (Updated 05/15/23 @ 13:03 by Brittani Subramanian LPN) Mother Breast cancerGrandmother Colon cancer Social History Smoking Status: Former smoker alcohol intake: never substance use type: does not use HPI HPI HPI: 52-year-old female was referred by Dr. Shaheen Acosta for surgical consultation regarding gastroesophageal reflux disease. A written compromise surgical consult and recommendations will return to him. The patient is on chronic omeprazole therapy 40 mg daily. She has had a previous bilateral mastectomy with reconstruction. There is a family history of eosinophilic esophagitis. By report the patient has a known hiatal hernia. The patient has had a previous CT scan on December 18, 2020. I have personally reviewed these images. Although there is no radiologist interpretation regarding the stomach there clearly is a hiatal hernia present on those images. Patient states many years ago when she was a teenager that she had an upper scope done when she was in [place]. She states that there was some scarring at that time. She was on medicines off and on at that period of time but for the past 10 years she has been consistently on omeprazole 40 mg daily and if she misses a day she knows that she has irritation. Even on the medication she sometimes has breakthrough reflux symptoms and takes some as needed Tums. Now because of headaches however she does routinely take ibuprofen or Advil. She was not aware that that is a gastric irritant. She denies use of tobacco or alcohol. She says that she had a colonoscopy done by Dr. Burgess approximately 2018 No bright red blood per rectum or melena no abdominal pain. She has had bilateral mastectomies and reconstruction for breast cancer. ROS General General: Yes weight change and breast cancer Gastro Gastrointestinal: Yes acid reflux Exam Const General: cooperative, comfortable and no acute distress Nutritional Appearance: average body habitus HENMT Head: normal to inspection Eyes General: appearance normal, both eyes and all related structures Neck Neck: normal visual inspection Resp Effort & Inspection: normal respiratory effort Auscultation: clear to auscultation bilaterally Cardio Rate: regular rate Rhythm: regular rhythm GI Palpation: soft and no hepatosplenomegaly Musc Cervical Spine: normal cervical lordosis Skin General: no rashes or lesions noted Neuro General: patient alert, patient awake and patient oriented x3 Extrem General: no calf tenderness Psych Appearance: grossly normal Assessment and Plan Assessment and Plan (1) GERD (gastroesophageal reflux disease): Qualifiers: Esophagitis presence: esophagitis presence not specified Qualified Code(s): K21.9 - Gastro-esophageal reflux disease without esophagitis Plan: I do recommend to the patient a esophagogastroduodenoscopy with possible biopsy or polypectomy or esophageal dilatation if indicated. I have specifically discussed the benefit risk complication alternatives of a dilatation procedure. She is aware since she is having esophageal dysphagia and solid food issues that she may have stricturing present. She has had an opportunity ask and have questions answered. I have asked her to cease her nonsteroidal anti-inflammatory drugs and convert to acetaminophen. She is requesting this procedure be performed before the end of the year. I appreciate the opportunity of assisting with her surgical care Copy: Dr. Shaheen Dover M.D., F.A.C.S I have examined the patient and the H&P has been reviewed. There are no clinical changes since date of exam. Billy Dover M.D., F.A.C.S.
[2023-06-08 17:14] VITALS: BP 127/67; BP 140/89; PULSE 109; RESP 20; TEMP 36.1; O2SAT 97
[2023-06-08 17:15] VITALS: BP 140/89; BP 164/76; PULSE 101; RESP 18; O2SAT 96
--- NOTE | 2023-06-08 17:15 | OP.CCLET_ITS ---
06/08/2023 Kishor Acosta [address] [place] [address] Re : Upper GI endoscopy procedure for Brittani Fam Dear Dr. Acosta This procedure was performed on Thursday, June 08, 2023. My impressions and recommendations are as follows: Impressions : - LA Grade A reflux esophagitis with no bleeding. Biopsied. - Normal middle third of esophagus. Biopsied. - 3 cm hiatal hernia. - Erythematous mucosa in the antrum. Biopsied. - Normal examined duodenum. Biopsied. No evidence for stricture or Schatzki ring Recommendations : - Discharge patient to home. - Resume previous diet. - Continue present medications. - Telephone my office for pathology results in 1 week If reflux symptoms persist could consider esophageal manometry and possible surgical reflux procedure. We will notify the patient of the pathology results and any additional recommendations.. My findings are described in the full procedure note, which is enclosed. If I can be of further assistance, please feel free to contact me at Doctor phone number(s): Work: . Sincerely, Billy Dover MD 06/08/2023 5:14:51 PM This report has been signed electronically.
--- NOTE | 2023-06-08 17:15 | OP.EGD_ITS ---
Patient Name: Brittani Fam Procedure Date: 06/08/2023 2:55 PM Date of : 1970 Age: 52 Procedure: Upper GI endoscopy Indications: Dysphagia Providers: Billy Dover MD Medicines: See the Anesthesia note for documentation of the administered medications Complications: No immediate complications. Procedure: Pre-Anesthesia Assessment: - Prior to the procedure, a History and Physical was performed, and patient medications and allergies were reviewed. The patient's tolerance of previous anesthesia was also reviewed. The risks and benefits of the procedure and the sedation options and risks were discussed with the patient. All questions were answered, and informed consent was obtained. Prior Anticoagulants: The patient has taken no anticoagulant or antiplatelet agents. ASA Grade Assessment: II - A patient with mild systemic disease. After reviewing the risks and benefits, the patient was deemed in satisfactory condition to undergo the procedure. After obtaining informed consent, the endoscope was passed under direct vision. Throughout the procedure, the patient's blood pressure, pulse, and oxygen saturations were monitored continuously. The gastroscope was introduced through the mouth, and advanced to the second part of duodenum. The upper GI endoscopy was accomplished without difficulty. The patient tolerated the procedure well. Scope In: 4:57:14 PM Scope Out: 5:07:10 PM Total Procedure Duration Time 0 hours 9 minutes 56 seconds Findings: LA Grade A (one or more mucosal breaks less than 5 mm, not extending between tops of 2 mucosal folds) esophagitis with no bleeding was found 35 cm from the incisors. Biopsies were taken with a cold forceps for histology. The middle third of the esophagus was normal. Biopsies were taken with a cold forceps for histology. A 3 cm hiatal hernia was present. Diffuse mildly erythematous mucosa without bleeding was found in the gastric antrum. Biopsies were taken with a cold forceps for histology. The examined duodenum was normal. Biopsies were taken with a cold forceps for histology. Impression: - LA Grade A reflux esophagitis with no bleeding. Biopsied. - Normal middle third of esophagus. Biopsied. - 3 cm hiatal hernia. - Erythematous mucosa in the antrum. Biopsied. - Normal examined duodenum. Biopsied. No evidence for stricture or Schatzki ring Recommendation: - Discharge patient to home. - Resume previous diet. - Continue present medications. - Telephone my office for pathology results in 1 week If reflux symptoms persist could consider esophageal manometry and possible surgical reflux procedure. We will notify the patient of the pathology results and any additional recommendations.. Procedure Code(s): --- Professional --- 03913, Esophagogastroduodenoscopy, flexible, transoral; with biopsy, single or multiple Diagnosis Code(s): --- Professional --- K21.00, Gastro-esophageal reflux disease with esophagitis, without bleeding K44.9, Diaphragmatic hernia without obstruction or gangrene K31.89, Other diseases of stomach and duodenum R13.10, Dysphagia, unspecified CPT copyright 2021 [employer]. All rights reserved. The codes documented in this report are preliminary and upon distributor cleaner review may be revised to meet current compliance requirements. Billy Dover MD 06/08/2023 5:14:51 PM This report has been signed electronically. Number of Addenda: 0 Note Initiated On: 06/08/2023 2:55 PM
[2023-06-08 17:20] VITALS: BP 140/89; BP 163/90; PULSE 85; RESP 18; O2SAT 98
[2023-06-08 17:25] VITALS: BP 140/89; BP 176/86; PULSE 84; RESP 18; TEMP 37.1; O2SAT 98
[2023-06-08 17:52] VITALS: BP 140/89
== END 2023-06-08 17:58 | disposition home or self-care (01) ==
LOC: EN 13:22 → AC 13:24
PROVIDERS: PCP Family Medicine; Referring Provider Family Medicine; Visit Provider Surgery
PROC: 0DJ08ZZ Inspection of Upper Intestinal Tract, Via Natural or Artificial Opening Endoscopic (ICD-10-PCS; CPT 43235; principal; 2023-06-08 14:25)
DX: K29.50 Unspecified chronic gastritis without bleeding (principal); K44.9 Diaphragmatic hernia without obstruction or gangrene; R13.10 Dysphagia, unspecified; K31.89 Other diseases of stomach and duodenum; K21.00 Gastro-esophageal reflux disease with esophagitis, without bleeding; Z87.891 Personal history of nicotine dependence; Z80.0 Family history of malignant neoplasm of digestive organs; Z79.899 Other long term (current) drug therapy
CPT/HCPCS: 43239; 88305; 88313; 88342; J7120; J2405

== ENCOUNTER → 2023-09-18 | Outpatient (CLI) | payer BC, SELFPAY ==
[2023-09-18 10:23] LABS: Hematocrit 45.3 % (37-47); Hemoglobin 14.3 g/dL (12.0-15.0); Mean Corp Hgb Conc 31.6 g/dL (32-36); Mean Corpuscular Hgb 27.9 pg (27.0-32.0); Mean Corpuscular Volume 88.3 fL (81-99); Mean Platelet Vol. 9.2 fl (6.2-12.0); Platelet Count 341 K/mm3 (150-450); RBC Distribution Width CV 12.8 % (11.6-14.6); RBC Distribution Width SD 41.3 fl (35.1-43.9); Red Blood Count 5.13 M/mm3 (4.2-5.4); White Blood Count 6.2 K/mm3 (4.4-11.0)
[2023-09-18 10:56] LABS: Vitamin B12 426 pg/mL (211-911); Vitamin D,25 Hydroxy 49.1 ng/mL
[2023-09-18 11:45] LABS: ALB/GLOB Ratio 1.1 RATIO (0.9-2.4); AST(SGOT) 23 U/L (15-37); Alanine Aminotransfer ALT/SGPT 45 U/L (13-56); Albumin, Serum 3.8 g/dL (3.2-5.0); Alkaline Phosphatase 117 U/L (45-117); Anion Gap 5 (5-15); BUN 17 mg/dL (7-18); BUN/Creat Ratio 17.9 RATIO (10-20); Calcium,Total 8.8 mg/dL (8.5-10.1); Chloride 108 mmol/L (98-107); Cholesterol 193 mg/dL (200); Creatinine, Serum 0.95 mg/dL (0.55-1.02); EST Glomerular Filtration Rate 65 mL/min (>60); Est Glom Filt Rate - Afr Amer 79 mL/min (>60); Globulin 3.6 g/dL (2.2-4.2); Glucose 104 mg/dL (74-106); High Density Lipoprotein 65 mg/dL; Potassium 4.1 mmol/L (3.5-5.1); Protein, Total 7.4 g/dL (6.4-8.2); Sodium Level 141 mmol/L (136-145); Triglycerides 65 mg/dL; Very Low Density Lipoprotein 13 mg/dL (5-40)
== END | disposition home or self-care (01) ==
LOC: MTLAB 08:23
PROVIDERS: PCP Family Medicine; Referring Provider Family Medicine; Visit Provider Family Medicine
DX: K21.00 Gastro-esophageal reflux disease with esophagitis, without bleeding (principal); M85.80 Other specified disorders of bone density and structure, unspecified site; E55.9 Vitamin D deficiency, unspecified; Z13.220 Encounter for screening for lipoid disorders
CPT/HCPCS: 36415; 80053; 80061; 82306; 82607; 84443; 85027

== ENCOUNTER → 2023-09-24 | Outpatient (CLI) | payer BC, SELFPAY ==
--- NOTE | 2023-09-24 12:21 | US_ITS ---
STUDY: THYROID ULTRASOUND REASON FOR EXAM: Female, 52 years old. nodule TECHNIQUE: Ultrasound evaluation of the thyroid was performed with real-time and static askew-scale imaging. COMPARISON: Thyroid ultrasound dated September 19, 2016 FINDINGS: RIGHT LOBE: The right lobe of the thyroid gland measures 5.3 x 2.1 x 1.5 cm, previously measuring 5.8 x 2.2 x 1.9 cm. There is a heterogeneous echotexture. Redemonstration of diffuse nodularity throughout the thyroid gland compatible with multinodular goiter. The largest nodule is 9 mm and is mixed cystic and solid without vascular flow or suspicious findings. LEFT LOBE: The left lobe of the thyroid gland measures 4.7 x 1.7 x 2.0 cm, previously measuring 50.3 x 1.9 x 1.8 cm. There is a heterogeneous echotexture. Redemonstration of multinodular goiter. The largest dominant nodule is partially cystic and occupies the mid pole of the left lobe measuring 1.6 cm in diameter. Some internal debris is present in the cystic component of the left thyroid nodule but the debris does not demonstrate any vascular flow or suspicious features. ISTHMUS: The isthmus measures 2.5 mm. US/Thyroid IMPRESSION: 1. Multinodular goiter of the thyroid gland. Slight interval decrease in size of the thyroid gland compared to the prior study 2. TR2: 2 points = not suspicious 3. TR2: no FNA required ACR Thyroid Imaging Reporting and Data System (ACR TI-RADS) Reference: COMPOSITION (choose 1): Cystic or almost completely cystic - 0 points Spongiform- 0 points Mixed cystic and solid - 1 point Solid almost completely solid - 2 points ECHOGENICITY (choose 1): Anechoic space - 0 points Hyperechoic or isoechoic-1 point Hypoechoic-2 points Very hypoechoic-3 points SHAPE (choose 1): : Wider than tall-0 points Taller than wide-3 points MARGINS ( smooth, lobular, ill-defined) ECHOGENIC FOCI (macro or microcalcifications) Scoring and classification TR1: 0 points = benign TR2: 2 points = not suspicious TR3: 3 points = mildly suspicious TR4: 4-6 points = moderately suspicious TR5: ?7 points = highly suspicious Recommendations TR1: no FNA required TR2: no FNA required TR3: ?1.5 cm follow up, ?2.5 cm FNA = follow up: 1, 3 and 5 years TR4: ?1.0 cm follow up, ?1.5 cm FNA = follow up: 1, 2, 3 and 5 years TR5: ?0.5 cm follow up, ?1.0 cm FNA = annual follow up for up to 5 years FNA biopsy is recommended for suspicious lesions (TR3-TR5) with the above size criteria. If there are multiple nodules, the two with the highest ACR TI-RADS scores should be sampled (rather than the two largest), with largest size being used a tie-breaker if there are multiple nodules of the same classification. Electronically Signed: Andrei Chamberlain MD at 11:37 EDT Reading Location ID and State: [facility] / [place] , Service support ,
== END | disposition home or self-care (01) ==
PROVIDERS: PCP Family Medicine; Referring Provider Family Medicine; Visit Provider Family Medicine
DX: E04.1 Nontoxic single thyroid nodule (principal)
CPT/HCPCS: 76536

== ENCOUNTER → 2025-04-21 | Outpatient (CLI) | payer BC, SELFPAY ==
[2025-04-21 10:03] LABS: Hematocrit 42.3 % (37-47); Hemoglobin 14.0 g/dL (12.0-15.0); Mean Corp Hgb Conc 33.1 g/dL (32-36); Mean Corpuscular Volume 86.5 fL (81-99); Mean Platelet Vol. 9.5 fl (6.2-12.0); Platelet Count 353 K/mm3 (150-450); RBC Distribution Width CV 12.8 % (11.6-14.6); RBC Distribution Width SD 40.0 fl (35.1-43.9); Red Blood Count 4.89 M/mm3 (4.2-5.4); White Blood Count 6.2 K/mm3 (4.4-11.0)
[2025-04-21 10:43] LABS: AST(SGOT) 28 U/L (<=31); Alanine Aminotransfer ALT/SGPT 40 U/L (<=34); Albumin, Serum 4.3 g/dL (3.5-5.0); Alkaline Phosphatase 102 U/L (35-104); Anion Gap 9 (5-15); BUN 12 mg/dL (4-19); BUN/Creat Ratio 13.2 RATIO (10-20); Calcium,Total 8.8 mg/dL (7.6-11.0); Carbon Dioxide 28.4 mmol/L (21.0-32.0); Chloride 105 mmol/L (98-108); Cholesterol 198 mg/dL (<=200); Globulin 2.6 g/dL (2.2-4.2); Glucose 106 mg/dL (70-99); Low Density Lipoprotein Calc. 121 mg/dL; Potassium 3.9 mmol/L (3.3-5.1); Triglycerides 94 mg/dL; Very Low Density Lipoprotein 19 mg/dL (5-40); cholesterol:hdl ratio screen 3.31
== END | disposition home or self-care (01) ==
LOC: MTLAB 07:56
PROVIDERS: PCP Family Medicine; Referring Provider Family Medicine; Visit Provider Family Medicine
DX: K21.00 Gastro-esophageal reflux disease with esophagitis, without bleeding (principal); R73.01 Impaired fasting glucose; M85.80 Other specified disorders of bone density and structure, unspecified site
CPT/HCPCS: 36415; 80053; 80061; 84443; 85027